=== PATIENT | female | born 1985 | race Caucasian/White ===

== ENCOUNTER 2016-05-31 09:17 | Inpatient (IN) | payer OTHER ==
[2016-05-31] VITALS (11 sets, daily range): BP systolic 104–138; BP diastolic 60–78; PULSE 63–95; RESP 16–18; TEMP 98.1; O2SAT 95–98
[~2016-05-31] VITALS: Ht 167.6 cm; Wt 89.8 kg
[2016-05-31] MEDS ORDERED: VALT500T PO (10:21)
[2016-05-31] MEDS ORDERED: ASPI-110 PO (10:21)
[2016-05-31] MEDS ORDERED: PNVPAK PO (10:21)
[2016-05-31 11:07] LABS: AUTOMATED NEUTROPHIL # 5.8 TH/MM3 (1.8-7.7); BASOPHIL % 0.2 % (0.0-2.0); EOSINOPHIL # 0.1 TH/MM3 (0-0.4); EOSINOPHIL % 0.6 % (0.0-4.0); HEMO FLAGS DIFF FINAL; LYMPH % 14.6 % (9.0-44.0); LYMPHOCYTE # 1.1 TH/MM3 (1.0-4.8); MEAN CELL VOLUME 91.2 FL (80.0-100.0); MEAN CORPUSCULAR HEMOGLOBIN 32.5 PG (27.0-34.0); MEAN CORPUSCULAR HGB CONC 35.6 % (32.0-36.0); MONO % 10.1 % (0.0-8.0); NEUT % 74.5 % (16.0-70.0); PLATELET COUNT 140 TH/MM3 (150-450); RED BLOOD COUNT 3.83 MIL/MM3 (4.00-5.30); RED CELL DISTRIBUTION WIDTH 13.1 % (11.6-17.2); WHITE BLOOD COUNT 7.8 TH/MM3 (4.0-11.0)
[2016-05-31 11:13] LABS: BACTERIA, URINE OCC /hpf; BLOOD, URINE NEG (NEG); COMMENT (UR) CULT NOT INDICATED; CULTURE IF INDICATED CULT NOT INDICATED; GLUCOSE,URINE NEG (NEG); KETONE, URINE NEG (NEG); MUCUS URINE FEW /lpf (OCC); NITRITE,URINE NEG (NEG); PH, URINE 6.5 (5.0-8.5); SQUAMOUS EPITHELIAL CELL URINE 1 /hpf (0-5); URINE COLOR LIGHT-YELLOW (YELLW/STRAW)
--- NOTE | 2016-05-31 12:50 | MH ---
cc: CHANDA CARLISLE M.D. DATE OF ADMISSION: 05/31/2016 ADMITTING DIAGNOSIS 1. at 36 weeks. 2. Oligohydramnios. 3. Large fibroids. 4. Positive BHUPENDRA. HISTORY OF PRESENT ILLNESS The patient is a 31-year-old white female, para 0, LMP of 09/18/2015, EDC of 06/24/2016, who has been followed by me throughout the with known large fibroids noted pre-conception. She has had appropriate growth. She has been having biophysical profiles to evaluate well-being. MATTHIAS 05/27/2016 was down to 6.7. Follow-up test today is down to 4.9. The maternal medicine JEFF, recommend proceeding with delivery. Due to her fibroids and unfavorable cervix, she is now admitted for primary . PAST MEDICAL HISTORY PREVIOUS SURGERY None. ALLERGIES 1. PENICILLIN. 2. CECLOR. 3. Z-ERIKA. TRANSFUSIONS None. SERIOUS MEDICAL ILLNESS 1. Positive BHUPENDRA. 2. Possible Sjogren's syndrome. SOCIAL HISTORY Mental health therapist. . Alcohol, tobacco and drugs are none. FAMILY HISTORY Noncontributory. PHYSICAL EXAMINATION GENERAL: A well-nourished, well-developed white female. VITAL SIGNS: Stable. HEENT: Exam is normal. CHEST: Clear. HEART: Regular rate. ABDOMEN: Gravid, nontender. EFW is 3000 grams. CERVIX: Cervix is long, thick and closed. ASSESSMENT As above. PLAN She is now admitted for primary . While in the office I explained the procedures, the risks, benefits and complications including but not limited to , infection, bleeding, immaturity as well as risk of stillborn described. MD CHIP Basilio/NEO /12:32 PM /12:38 PM ANGELLA
[2016-05-31] MEDS: LACTATED RINGER'S 1000 ML INJ 1,000 ML IV SCH ×2 (13:04→23:04)
[2016-05-31] MEDS ORDERED: CITRIC ACID-SODIUM CITRATE LIQ 30 ML UDC PO SCH (15:30)
[2016-05-31] MEDS ORDERED: LACTATED RINGER'S 1000 ML IV ONE (15:30)
[2016-05-31] MEDS ORDERED: CLINDAMYCIN INJ 900 MG in SODIUM CHLORIDE 0.9% INJ 100 ML IV SCH (15:30)
[2016-05-31] MEDS: LACTATED RINGER'S 1000 ML IV SCH ×2 (16:28→22:40)
[2016-05-31] MEDS ORDERED: EPIDURAL-NALOXONE HCL 0.4 MG/ML AMP IV PRN (17:05)
[2016-05-31] MEDS ORDERED: EPIDURAL-NO SYSTEMIC NARCOTICS XX PRN (17:05)
[2016-05-31] MEDS ORDERED: EPIDURAL-DIPHENHYDRAMINE HCL 50 MG/ML VIAL IV PUSH PRN (17:05)
[2016-05-31] MEDS ORDERED: EPIDURAL-DO NOT ADMINISTER ANTICOAGULANTS XX PRN (17:05)
[2016-05-31] MEDS ORDERED: EPIDURAL-DIPHENHYDRAMINE HCL 50 MG CAP PO PRN (17:05)
[2016-05-31] MEDS ORDERED: ACETAMINOPHEN 1000 MG/100 ML VIAL IV ONE (17:14)
[2016-05-31] MEDS ORDERED: DICLOFENAC SODIUM 37.5 MG/ML VIAL IV PUSH ONE (17:14)
[2016-05-31] MEDS ORDERED: MORPHINE SULFATE PF 5 MG/10 ML VIAL ONE (17:59)
[2016-05-31] MEDS ORDERED: OXYTOCIN 10 UNIT/ML AMP ONE ×3 (17:59→19:08)
[2016-05-31] MEDS ORDERED: OXYTOCIN 30 UNITS-500ML PREMIX 500 ML IV ONE (18:00)
[2016-05-31] MEDS ORDERED: ZOLPIDEM TARTRATE 5 MG TAB PO PRN (18:00)
[2016-05-31] MEDS: ACETAMINOPHEN 1000 MG/100 ML VIAL IV SCH (18:00)
[2016-05-31] MEDS ORDERED: SODIUM CHLORIDE 0.9% FLUSH 5 ML FLUSH IV PRN (18:00)
[2016-05-31] MEDS ORDERED: ONDANSETRON HCL 4 MG/2 ML VIAL IVP PRN (18:00)
[2016-05-31] MEDS ORDERED: oxyCODONE/ACETAMINOPHEN 5 MG/325 MG TAB PO PRN (18:00)
[2016-05-31] MEDS ORDERED: KETOROLAC TROMETHAMINE 30 MG/ML (IVP) VIAL IV PUSH SCH (18:00)
[2016-05-31] MEDS ORDERED: SIMETHICONE 80 MG CHEWABLE TAB PO PRN (18:00)
[2016-05-31] MEDS ORDERED: MEASLES, MUMPS, RUBELLA VACCINE 0.5 ML VIAL SQ ONE (18:00)
[2016-05-31] MEDS ORDERED: OXYTOCIN 30 UNITS-500ML PREMIX 500 ML IV PRN (18:15)
[2016-05-31] MEDS ORDERED: METHYLERGONOVINE MALEATE 0.2 MG/ML VIAL ONE (18:34)
[2016-05-31] MEDS ORDERED: METHYLERGONOVINE MALEATE 0.2 MG/ML VIAL IM ONE (20:30)
[2016-05-31] MEDS: SODIUM CHLORIDE 0.9% FLUSH 5 ML FLUSH IV SCH (21:00)
[2016-05-31] MEDS: OXYTOCIN INJ 20 UNITS in LACTATED RINGER'S 1000 ML INJ 1,000 ML IV SCH (23:28)
[2016-06-01] MEDS ORDERED: KETOROLAC TROMETHAMINE 30 MG/ML (IVP) VIAL IV PUSH PRN (01:30)
[2016-06-01] MEDS: ACETAMINOPHEN 1000 MG/100 ML VIAL IV SCH ×2 (02:08→09:47)
[2016-06-01] MEDS: LACTATED RINGER'S 1000 ML IV SCH (04:53)
[2016-06-01] MEDS: OXYTOCIN INJ 20 UNITS in LACTATED RINGER'S 1000 ML INJ 1,000 ML IV SCH ×2 (05:52→14:39)
[2016-06-01 06:23] LABS: AUTOMATED NEUTROPHIL # 10.1 TH/MM3 (1.8-7.7); BASOPHIL % 0.1 % (0.0-2.0); EOSINOPHIL % 0.1 % (0.0-4.0); HEMATOCRIT 28.9 % (35.0-46.0); HEMO FLAGS DIFF FINAL; LYMPH % 14.6 % (9.0-44.0); LYMPHOCYTE # 1.9 TH/MM3 (1.0-4.8); MEAN CELL VOLUME 91.8 FL (80.0-100.0); MEAN CORPUSCULAR HEMOGLOBIN 31.9 PG (27.0-34.0); MEAN CORPUSCULAR HGB CONC 34.7 % (32.0-36.0); MONO % 5.7 % (0.0-8.0); NEUT % 79.5 % (16.0-70.0); PLATELET COUNT 148 TH/MM3 (150-450); RED BLOOD COUNT 3.15 MIL/MM3 (4.00-5.30); RED CELL DISTRIBUTION WIDTH 12.8 % (11.6-17.2); WHITE BLOOD COUNT 12.7 TH/MM3 (4.0-11.0)
[2016-06-01 06:38] LABS: BICARBONATE 26.9 MEQ/L (21.0-32.0); POTASSIUM 4.2 MEQ/L (3.5-5.1)
[2016-06-01 16:15] VITALS: BP 116/71; PULSE 84; RESP 18; TEMP 98.1
[2016-06-01] MEDS: ENOXAPARIN SODIUM 40 MG/0.4 ML SYRINGE SQ SCH (17:53)
[2016-06-01] MEDS: IBUPROFEN 600 MG TAB PO PRN (19:51)
[2016-06-01] MEDS: oxyCODONE/ACETAMINOPHEN 5 MG/325 MG TAB PO PRN (19:51)
[2016-06-01 20:00] VITALS: BP 110/65; PULSE 70; RESP 18; TEMP 98
[2016-06-02] MEDS: oxyCODONE/ACETAMINOPHEN 5 MG/325 MG TAB PO PRN ×3 (06:08→19:19)
[2016-06-02] MEDS: IBUPROFEN 600 MG TAB PO PRN ×3 (06:08→19:19)
[2016-06-02] MEDS: SODIUM CHLORIDE 0.9% FLUSH 5 ML FLUSH IV SCH ×2 (07:21→20:09)
[2016-06-02] MEDS: LACTATED RINGER'S 1000 ML IV SCH ×3 (07:21→20:10)
[2016-06-02] MEDS ORDERED: DIPHTH/TETANUS/ACEL PERTUSSIS (BOOSTER) 0.5 ML VIAL/PFS IM ONE (09:00)
[2016-06-02 10:40] VITALS: BP 118/72; PULSE 89; RESP 16; TEMP 98.6
[2016-06-02] MEDS: DOCUSATE SODIUM 50 MG/SENNA 8.6 MG TAB PO PRN (12:39)
--- NOTE | 2016-06-02 13:24 | MP ---
cc: CHANDA CARLISLE DATE OF SURGERY 05/31/2016 PREOPERATIVE DIAGNOSES 1. at 36 weeks. 2. Large fibroids. 3. 0ligohydramnios. 4. Factor II deficiency. Positive BHUPENDRA. POSTOPERATIVE DIAGNOSES 1. at 36 weeks. 2. Large fibroids. 3. 0ligohydramnios. 4. Factor II deficiency. Positive BHUPENDRA. 5. Delivered. PROCEDURE Primary low transverse section. ANESTHESIA Spinal. SURGEON Chanda Carlisle MD PAPERBOARD MACHINE OPERATOR GAYLA Devries ESTIMATED BLOOD LOSS FOR THE PROCEDURE About 500 cc. FLUIDS 1 liter crystalloid. OBJECTIVE FINDINGS Following the induction of adequate spinal anesthesia, the patient was prepped and draped supine on the operating table in the usual sterile fashion in left lateral tilt position. The abdomen was opened through a Pfannenstiel incision using a knife to cut down through the skin to the fascia. The fascia was opened transversely, stripped from the muscle, the rectus muscle split in the midline and the peritoneum opened sharply without incident. The bladder flap was taken down sharply, retracted with Va blade. The lower uterine segment was incised transversely with a knife, extended with blunt dissection, he membranes ruptured with clear fluid. The baby was in the LOT position. The vacuum was applied at low pressure for less than 5 seconds to facilitate removal of the head. The mouth was suctioned, the cord clamped and cut and the baby passed to the awaiting team, a viable, vigorous male. Apgars were 8 and 9, weight 5 pounds, 12 ounces. Cord blood was collected for typing. The placenta was manually removed and the uterine cavity wiped clean with laps. The uterus was exteriorized. There was a large 10-cm anterior fundal fibroid and several smaller posterior fibroids about 2 cm. Tubes and ovaries were normal. The uterine wound was then closed in two layers of running suture, the first with a running locking stitch of 0 Vicryl and the second with a running imbricating stitch of 0 Vicryl. Posterior inspection of the uterus, tubes and ovaries was normal. The uterus was now replaced in the abdominal cavity, irrigation performed. No bleeding was evident, so the bladder flap was closed with a running stitch of 3-0 Vicryl. All laps and retractors were removed, counts were correct. The anterior peritoneum was closed with a running 2-0 Vicryl, the fascia closed with a running locking stitch of 0 Vicryl from corner to midline and tied, the subcu with a running 3-0 Vicryl and the skin with a running subcuticular 3-0 Monocryl. Dermabond applied. All counts were correct and the patient was awakened and taken to the recovery room in good condition. MD CHIP Basilio/IVAN /5:59 PM /1:16 PM
[2016-06-02] MEDS: ENOXAPARIN SODIUM 40 MG/0.4 ML SYRINGE SQ SCH (18:26)
[2016-06-02 19:25] VITALS: BP 114/62; PULSE 76; RESP 16; TEMP 97.7
[2016-06-03] MEDS: oxyCODONE/ACETAMINOPHEN 5 MG/325 MG TAB PO PRN ×3 (01:21→12:56)
[2016-06-03] MEDS: IBUPROFEN 600 MG TAB PO PRN ×3 (01:22→12:55)
[2016-06-03] MEDS: LACTATED RINGER'S 1000 ML IV SCH ×2 (04:00→09:37)
[2016-06-03] MEDS: DOCUSATE SODIUM 50 MG/SENNA 8.6 MG TAB PO PRN (07:47)
[2016-06-03] MEDS ORDERED: OXYC1TAB63 PO (08:35)
[2016-06-03] MEDS ORDERED: ENOX40P SQ (08:35)
--- NOTE | 2016-06-03 08:35 | HHI.DCPOC ---
Discharge Care Plan Report Symptoms to Your Doctor -Temperate above 100.5 degrees -Redness, of incision or excessive or foul smelling drainage -Unusual pain or calf pain -Increased vaginal bleeding -Painful or difficulty urinating -Feelings of extreme sadness or anxiety after 2 weeks Goals to Promote Your Health * To prevent worsening of your condition and complications * To maintain your health at the optimal level Directions to Meet Your Goals Take your medications as prescribed Follow your dietary instruction Follow activity as directed Ensure plenty of rest for recovery Drink fluids for hydration Keep your appointments as scheduled Take your immunizations and boosters as scheduled If your symptoms worsen call your PCP, if no PCP go to Urgent Care Center or Emergency Room Smoking is Dangerous to Your Health. Avoid second hand smoke Call the 24-hour crisis hotline for domestic abuse at Mikey Krueger MD Jun 03, 2016 08:35
[2016-06-03] MEDS: SODIUM CHLORIDE 0.9% FLUSH 5 ML FLUSH IV SCH (09:00)
--- NOTE | 2016-06-06 20:37 | MD ---
cc: CHANDA CARLISLE ADMISSION DATE: 05/31/2016 DISCHARGE DATE: 06/03/2016 ADMISSION DIAGNOSES 1. at 36 weeks. 2. Multiple fibroids. 3. Oligohydraminos. 4. Sj gren syndrome. 5. Positive BHUPENDRA. 6. Factor II mutation. DISCHARGE DIAGNOSES 1. at 36 weeks. 2. Multiple fibroids. 3. Oligohydramnios. 4. Sj gren syndrome. 5. Positive BHUPENDRA. 6. Factor II mutation. 7. Delivered. PROCEDURE Primary low transverse section on 05/31/2016. HISTORY OF PRESENT ILLNESS The patient is a 31-year-old white female para 0, LMP of 09/18/2015, EDC of 06/24/2016 by dates, 06/28/2016 by early ultrasound. She was found have a large fibroid preconception. Myomectomy had been planned but she conceived spontaneously prior to surgery. Also known to have a positive BHUPENDRA and possible Sj gren syndrome. Previous pre- anticardiolipin antibodies. She was maintained on baby aspirin throughout the . Progesterone support first trimester. Had consultation at [facility] and was carefully followed. On the day of admission her MATTHIAS was 4.9. Her cervix was long and thick and she was admitted for section, had spinal anesthesia. A viable vigorous male, Apgars 8 and 9, weight 5 pounds 12 ounces. The baby was named Felipe. mom did well with gradual advancement of diet and activity. Discharged home in excellent condition on 06/03/2016. Pre and postop labs were normal. DISCHARGE INSTRUCTIONS She was discharged home on Lovenox 40 mg subcu daily, #30 with plan to continue for 6-8 weeks . And Percocet 5 one to two p.o. q.4h as needed for pain, #60. She will take her vitamins and iron pills and Valtrex at home. She will return to see me in one week. She will call if abnormal symptoms. She has requested circumcision when the baby is cleared for discharge. MD CHIP Basilio/KK /8:45 AM /8:26 PM [facility]PITAL[facility]
== END 2016-06-03 13:00 | disposition home or self-care (01) | DRG 765 ==
LOC: H2EB 09:17 → H1EA 20:01
PROVIDERS: ADMIT Obstetrics & Gynecology; ATTEND Obstetrics & Gynecology
PROC: 10D00Z1 Extraction of Products of Conception, Low, Open Approach (ICD-10-PCS; principal; 2016-05-31)
DX: O41.03X0 Oligohydramnios, third trimester, not applicable or unspecified (principal); O99.12 Other diseases of the blood and blood-forming organs and certain disorders involving the immune mechanism complicating childbirth; D68.2 Hereditary deficiency of other clotting factors; D25.9 Leiomyoma of uterus, unspecified; Z3A.36 36 weeks gestation of pregnancy; O34.13 Maternal care for benign tumor of corpus uteri, third trimester; Z37.0 Single live birth
CPT/HCPCS: 59025; 80048; 81001; 85025; 86850; 86900; 86901; J0131; J1130; J1650; J2210; J2274; J2590; J7120

== ENCOUNTER 2017-04-10 21:18 | Emergency (ER) | payer OTHER ==
[~2017-04-10] VITALS: Ht 167.6 cm; Wt 70.0 kg
[~2017-04-10 21:18] MED LIST: ENOX40P SQ; OXYC1TAB63 PO; PNVPAK PO; VALT500T PO
[2017-04-10 21:20] VITALS: BP 126/77; PULSE 139; RESP 18; TEMP 98.8; O2SAT 99
--- NOTE | 2017-04-10 22:15 | PD ---
HPI Chief Complaint: Medical Clearance Time Seen by Provider: 21:43 Travel History International Travel<30 days: No Contact w/Intl Traveler<30days: No Traveled to known affect area: No History of Present Illness HPI 32-year-old female presents to the emergency department for evaluation after having development of numbness in her hands, then her lips, onset of headache, one episode of vomiting, and her heart racing tonight at approximately 8 PM. She has history of migraine headaches with auras in the past with numbness and tingling. Headache is left-sided. She denies numbness and tingling in her hands or lips at this time. She denies airway edema. Her heart rate is a proximally 120 230 bpm. She reports having an episode where she was trying to express she was trying to say and was unable to say it. Denies confusion, disorientation, change in mentation, slurred speech. Denies focal deficits or weakness. Has had intermittent episodes of her heart racing and shortness of breath for the past month. Reports feeling a little shortness of breath at this time. Denies chest pressure or pain. Denies fevers or recent illness. Denies abdominal pain. Took ibuprofen prior to arrival and then had the episode of vomiting. Rates headache 610. Describes it as an throbbing sensation. Headache is left-sided. She was at a [employer] tonight for [employer] and denies eating any new foods. Reports breast-feeding currently. Her primary care provider is nurse practitioner Alexandra. Allergies to penicillin, Ceclor, azithromycin. History of factor II bleeding disorder and Sjorgens. Denies anticoagulant therapy. Has no other medical complaints. No other modifying factors or associated signs and symptoms. PFSH Past Medical History Autoimmune Disease: Yes (UNKNOWN DISEASE) Blood Disorders: Yes (FACTOR 2 DEFICIENCY) Diminished Hearing: No Immunizations Current: Yes ?: Unknown Past Surgical History Section: Yes Social History Alcohol Use: Yes (OCC) Tobacco Use: No Substance Use: No Allergies-Medications (Allergen,Severity, Reaction): Coded Allergies: cefaclor (Unverified Allergy, Severe, Hives, 04/10/17) penicillin G (Unverified Allergy, Severe, Hives, 04/10/17) azithromycin (Unverified Allergy, Intermediate, Hives, 04/10/17) Reported Meds & Prescriptions Reported Meds & Active Scripts Active Review of Systems Except as stated in HPI: all other systems reviewed are Neg Physical Exam Narrative GENERAL: Well-nourished, well-developed patient, in no acute distress SKIN: Warm and dry. HEAD: Atraumatic. Normocephalic. Tongue midline. No facial droop noted. Finger to nose test normal. EYES: Pupils equal and round at 4 mm with brisk reaction. No scleral icterus. No injection or drainage. PERRLA. EOMI. ENT: Mucosa pink and moist. Airway patent. NECK: Trachea midline. No lymphadenopathy. CARDIOVASCULAR: Tachycardic rate and rhythm 120s. No murmur appreciated. RESPIRATORY: No accessory muscle use. Clear to auscultation. Breath sounds equal bilaterally. GASTROINTESTINAL: Abdomen soft, non-tender, nondistended. Hepatic and splenic margins not palpable. Bowel sounds are active 4 quadrants. MUSCULOSKELETAL: No obvious deformities. No clubbing. No cyanosis. No edema. NEUROLOGICAL: Awake and alert. Oriented 3. No obvious cranial nerve deficits. Motor grossly within normal limits. Normal speech. No ataxia. No mid -line drift. No upper or lower extremity drift. Moves all extremities. 5/5 strength to all extremities. PSYCHIATRIC: Appropriate mood and affect; insight and judgment normal. Data Data Last Documented VS Vital Signs Date Time Temp Pulse Resp B/P (MAP) Pulse Ox O2 Delivery O2 Flow Rate FiO2 04/10/17 21:20 98.8 139 18 126/77 (93) 99 Room Air Orders Orders Basic Metabolic Panel (Bmp) (04/10/17 22:16) Complete Blood Count With Diff (04/10/17 22:16) Iv Access Insert/Monitor (04/10/17 22:16) Ecg Monitoring (04/10/17 22:16) Oximetry (04/10/17 22:16) Sodium Chlor 0.9% 1000 Ml Inj (Ns 1000 M (04/10/17 22:16) Sodium Chloride 0.9% Flush (Ns Flush) (04/10/17 22:30) Electrocardiogram (04/10/17 22:16) Thyroid Stimulating Hormone (04/10/17 22:16) Ct Brain W/O Iv Contrast(Rout) (04/10/17 ) [facility] Medical Decision Making Medical Screen Exam Complete: Yes Emergency Medical Condition: Yes Medical Record Reviewed: Yes Differential Diagnosis Sinus tachycardia, anxiety, panic attack, dehydration, migraine with aura Narrative Course 32-year-old female with episode of numbness and tingling in her hands and lips, onset of headache, and one episode of vomiting. Has history of migraine headaches with auras. Heart rate is in the 120s; denies chest pain, chest pressure. Has intermittent episodes of heart racing and shortness of breath for the past month. Physical exam and neuro exam is unremarkable. I discussed patient with Dr. Guido and she will evaluate the patient. 2207: Dr. Guido evaluated the patient and recommended EKG, CBC, BMP, TSH, CT head, normal saline bolus. 0: Dr. Guido assumed patient care at this time. See her note for final patient disposition. Teresa Hernandez Apr 10, 2017 22:15
[2017-04-10] MEDS ORDERED: SODIUM CHLOR 0.9% 1000 ML INJ 1,000 ML IV SCH ×2 (22:16→23:45)
[2017-04-10] MEDS ORDERED: SODIUM CHLORIDE 0.9% FLUSH 10 ML FLUSH IV FLUSH PRN (22:30)
--- NOTE | 2017-04-10 23:17 | RADRPT ---
EXAM DATE/TIME: 04/10/2017 22:50 [place] COMPARISON: No previous studies available for comparison. INDICATIONS : Cephalgia. RADIATION DOSE: 56.35 CTDIvol (mGy) MEDICAL HISTORY : None SURGICAL HISTORY : None. ENCOUNTER: Initial ACUITY: 1 day PAIN SCALE: 5/10 LOCATION: cranial TECHNIQUE: Multiple contiguous axial images were obtained of the head. Using automated exposure control and adjustment of the mA and/or kV according to patient size, radiation dose was kept as low as reasonably achievable to obtain optimal diagnostic quality images. DICOM format image data is av ailable electronically for review and comparison. FINDINGS: There is no evidence for intracranial hemorrhage, mass effect, mass lesions, edema, or extra-axial fl uid collections. The visualized bony structures appear intact. The ventricles are normal size for t he patient's age. There are no signs of acute infarction for technique. CONCLUSION: Unremarkable study. Farida Castro MD on April 10, 2017 at 23:13 Board Certified Radiologist. This report was verified electronically.
[2017-04-10 23:28] LABS: AUTOMATED NEUTROPHIL # 3.9 TH/MM3 (1.8-7.7); BASOPHIL % 0.1 % (0.0-2.0); EOSINOPHIL % 0.3 % (0.0-4.0); HEMATOCRIT 33.8 % (35.0-46.0); HEMOGLOBIN 11.4 GM/DL (11.6-15.3); LYMPH % 16.5 % (9.0-44.0); LYMPHOCYTE # 0.9 TH/MM3 (1.0-4.8); MEAN CELL VOLUME 86.5 FL (80.0-100.0); MEAN CORPUSCULAR HEMOGLOBIN 29.1 PG (27.0-34.0); MEAN CORPUSCULAR HGB CONC 33.6 % (32.0-36.0); MEAN PLATELET VOLUME 8.4 FL (7.0-11.0); MONO % 9.8 % (0.0-8.0); MONOCYTE # 0.5 TH/MM3 (0-0.9); NEUT % 73.3 % (16.0-70.0); PLATELET COUNT 209 TH/MM3 (150-450); RED BLOOD COUNT 3.91 MIL/MM3 (4.00-5.30); RED CELL DISTRIBUTION WIDTH 12.8 % (11.6-17.2); WHITE BLOOD COUNT 5.4 TH/MM3 (4.0-11.0)
[2017-04-10 23:36] LABS: BICARBONATE 25.6 MEQ/L (21.0-32.0); BLOOD UREA NITROGEN 17 MG/DL (7-18); CALCIUM 8.6 MG/DL (8.5-10.1); CHLORIDE 107 MEQ/L (98-107); CREATININE 0.65 MG/DL (0.50-1.00); GLOMERULAR FILTRATION RATE 106 ML/MIN (>89); GLUCOSE,RANDOM 98 MG/DL (74-106); SODIUM (NA) 140 MEQ/L (136-145)
--- NOTE | 2017-04-11 00:08 | PD ---
Data Data Last Documented VS Vital Signs Date Time Temp Pulse Resp B/P (MAP) Pulse Ox O2 Delivery O2 Flow Rate FiO2 04/10/17 23:00 Room Air 04/10/17 21:20 98.8 139 18 99 Orders Orders Basic Metabolic Panel (Bmp) (04/10/17 22:16) Complete Blood Count With Diff (04/10/17 22:16) Iv Access Insert/Monitor (04/10/17 22:16) Ecg Monitoring (04/10/17 22:16) Oximetry (04/10/17 22:16) Sodium Chlor 0.9% 1000 Ml Inj (Ns 1000 M (04/10/17 22:16) Sodium Chloride 0.9% Flush (Ns Flush) (04/10/17 22:30) Electrocardiogram (04/10/17 22:16) Thyroid Stimulating Hormone (04/10/17 22:16) Ct Brain W/O Iv Contrast(Rout) (04/10/17 ) Sodium Chlor 0.9% 1000 Ml Inj (Ns 1000 M (04/10/17 23:45) Labs Laboratory Tests Test 04/10/17 22:47 White Blood Count 5.4 TH/MM3 Red Blood Count 3.91 MIL/MM3 Hemoglobin 11.4 GM/DL Hematocrit 33.8 % Mean Corpuscular Volume 86.5 FL Mean Corpuscular Hemoglobin 29.1 PG Mean Corpuscular Hemoglobin Concent 33.6 % Red Cell Distribution Width 12.8 % Platelet Count 209 TH/MM3 Mean Platelet Volume 8.4 FL Neutrophils (%) (Auto) 73.3 % Lymphocytes (%) (Auto) 16.5 % Monocytes (%) (Auto) 9.8 % Eosinophils (%) (Auto) 0.3 % Basophils (%) (Auto) 0.1 % Neutrophils # (Auto) 3.9 TH/MM3 Lymphocytes # (Auto) 0.9 TH/MM3 Monocytes # (Auto) 0.5 TH/MM3 Eosinophils # (Auto) 0.0 TH/MM3 Basophils # (Auto) 0.0 TH/MM3 CBC Comment DIFF FINAL Differential Comment Blood Urea Nitrogen 17 MG/DL Creatinine 0.65 MG/DL Random Glucose 98 MG/DL Calcium Level 8.6 MG/DL Sodium Level 140 MEQ/L Potassium Level 4.0 MEQ/L Chloride Level 107 MEQ/L Carbon Dioxide Level 25.6 MEQ/L Anion Gap 7 MEQ/L Estimat Glomerular Filtration Rate 106 ML/MIN Thyroid Stimulating Hormone 3rd Gen LESS THAN 0.005 uIU/ML MDM Supervised Visit with NEFTALY: Yes Interpretation(s) No leukocytosis I'll do anemia mild anemia electrolytes are reassuring tsh is low Differential Diagnosis Migraine headache, intracranial hemorrhage, stroke, TIA, hyperthyroidism Narrative Course This is a 32-year-old female who presents to the emergency department with multiple symptoms including shortness of breath, palpitations, numbness and tingling, some speech difficulty and some visual changes. She was persistently tachycardic in the emergency department. Her heart rate came down some with IV fluids but not completely. Her TSH is less than 0.005 consistent with likely hyperthyroidism which I suspect is contributing to her symptoms. She was advised to follow-up with her primary care physician. She is currently nursing so I don't want to start her on atenolol. I think she is safe for outpatient follow-up but I did explain to her the urgency of following up as soon as possible with her primary care physician. Patient will be discharged home. Diagnosis Primary Impression: Low TSH level Patient Instructions: General Instructions Additional Instruction: If you develop severe chest pain, shortness of breath, sweating, lightheadedness , dizziness or difficulty breathing return to the emergency department immediately. Followup with your primary care physician as soon as possible regarding your thyroid. Med/Other Pt SpecificInfo: No Change to Meds Disposition: 01 DISCHARGE HOME Condition: Stable Krupa Guido MD Apr 11, 2017 00:08
--- NOTE | 2017-04-11 08:51 | EKG ---
Date Performed: 04/10/2017 Time Performed: 22:33:58 PTAGE: 32 years EKG: SINUS TACHYCARDIA ABNORMAL RHYTHM ECG NO PREVIOUS TRACING DOCTOR: Navjot Lieberman Interpretating Date/Time 04/11/2017 08:51:20
== END 2017-04-11 01:21 | disposition home or self-care (01) ==
LOC: NEPC 21:18
DX: R94.6 Abnormal results of thyroid function studies (principal); R06.02 Shortness of breath; R20.0 Anesthesia of skin; R51 Headache
CPT/HCPCS: 70450; 80048; 84443; 85025; 93005; 96360; 96361; 99285; J7030

== ENCOUNTER 2017-09-26 19:32 | Observation (INO) | payer OTHER ==
[~2017-09-26] VITALS: Ht 167.6 cm; Wt 85.0 kg
[2017-09-26 19:37] VITALS: BP 161/81; PULSE 113; RESP 18; TEMP 98.4; O2SAT 99
[2017-09-26] MEDS ORDERED: LEVO.1 PO (19:50)
[2017-09-26] MEDS ORDERED: SODIUM CHLOR 0.9% 1000 ML INJ 1,000 ML IV ONE (20:00)
[2017-09-26 20:09] VITALS: PULSE 98; RESP 18; O2SAT 99
[2017-09-26 20:10] VITALS: BP 142/88; PULSE 102; RESP 18; O2SAT 99
[2017-09-26 20:26] LABS: AUTOMATED NEUTROPHIL # 2.3 TH/MM3 (1.8-7.7); BASOPHIL % 0.4 % (0.0-2.0); EOSINOPHIL # 0.1 TH/MM3 (0-0.4); EOSINOPHIL % 1.5 % (0.0-4.0); HEMATOCRIT 39.7 % (35.0-46.0); HEMOGLOBIN 13.4 GM/DL (11.6-15.3); LYMPH % 35.1 % (9.0-44.0); LYMPHOCYTE # 1.5 TH/MM3 (1.0-4.8); MEAN CELL VOLUME 86.1 FL (80.0-100.0); MEAN CORPUSCULAR HGB CONC 33.7 % (32.0-36.0); MONO % 9.5 % (0.0-8.0); MONOCYTE # 0.4 TH/MM3 (0-0.9); NEUT % 53.5 % (16.0-70.0); PLATELET COUNT 212 TH/MM3 (150-450); RED BLOOD COUNT 4.61 MIL/MM3 (4.00-5.30); RED CELL DISTRIBUTION WIDTH 16.4 % (11.6-17.2); WHITE BLOOD COUNT 4.3 TH/MM3 (4.0-11.0)
[2017-09-26 20:36] LABS: PROTHROMBIN TIME - PATIENT 9.8 SEC (9.8-11.6)
--- NOTE | 2017-09-26 20:36 | PD ---
HPI Chief Complaint: Neuro Symptoms/ Deficits Time Seen by Provider: 19:46 Travel History International Travel<30 days: No Contact w/Intl Traveler<30days: No Traveled to known affect area: No History of Present Illness HPI The patient is a 32 year old female who presents to the [facility] emergency department with a history of earlier this evening having onset of loss of visual sarmiento in the right side of her vision along the periphery, associated with difficulty with word finding ability, numbness and tingling to the right side of her face and right arm the patient reports that she has had similar symptoms in the past related to being hyperthyroid. She is under the care of an amalgamator, . She reports that she underwent thyroid ablation in June 2017 and is now hypothyroid. She reports that her levothyroxine was recently. She reports that she normally gets her blood levels drawn every 2 weeks. The patient reports that over the last 2 weeks she has been tachycardic, hypertensive over the last 2 months, and also over the last year having intermittent shortness of breath. She reports that she had attributed these symptoms to anxiety and hyperthyroid disorder. The patient additionally reports that she has had problems with constipation. She last moved her bowels normally approximately 1 week ago with the use of MiraLAX. 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 The patient denies being on any blood thinners or aspirin. She reports that she was on an aspirin daily when she was and this was discontinued in May 2016 when she delivered her baby. The patient's other medical history is complicated by having an autoimmune disorder diagnosed based on abnormal laboratory studies, however she reports that she is asymptomatic. She is followed by adding machine mechanic every 6 months for this. She reports that her last BHUPENDRA had actually returned to normal. On review of systems otherwise, the patient denies having any known recent fevers, cough or conge, neck pain, chest pain, abdominal pain, vomiting, diarrhea, urinary symptoms, one-sided weakness, or dizziness. The patient reports that the neurologic symptoms that she was experiencing lasted for a few minutes and then resolved. She denies ever having an MRI of the brain. The patient incidentally reports also having an associated headache behind the left eye with light sensitivity. LMP: September 11 - September 16, reportedly using condoms for prevention of [facility] Past Medical History Narrative Medical The patient's past medical history is significant for an autoimmune disorder, coagulation disorder with factor II deficiency, history of hyperthyroidism status post ablation and now hypothyroidism. Autoimmune Disease: Yes (UNKNOWN DISEASE) Blood Disorders: Yes (FACTOR 2 DEFICIENCY) Diminished Hearing: No Immunizations Current: Yes Thyroid Disease: Yes (hypothroidism) Tetanus Vaccination: < 5 Years Influenza Vaccination: Yes ?: Unknown LMP: 09/11/2017 Past Surgical History Narrative Surgical The patient's past surgical history is significant for . Section: Yes Other Surgery: Yes (iodine radation of tyriod) Social History Alcohol Use: Yes (OCC) Tobacco Use: No Substance Use: No Allergies-Medications (Allergen,Severity, Reaction): Coded Allergies: cefaclor (Unverified Allergy, Severe, Hives, 09/26/17) penicillin G (Unverified Allergy, Severe, Hives, 09/26/17) azithromycin (Unverified Allergy, Intermediate, Hives, 09/26/17) Reported Meds & Prescriptions Reported Meds & Active Scripts Active Reported Synthroid (Levothyroxine Sodium) 100 Mcg Tab 100 Mcg PO DAILY Review of Systems Except as stated in HPI: all other systems reviewed are Neg General / Constitutional: No: Fever Eyes: No: Visual changes HENT: Positive: Headaches, No: Rhinorrhea, Congestion, Neck Stiffness, Neck Pain Cardiovascular: Positive: Dyspnea on exertion, No: Chest Pain or Discomfort Respiratory: Positive: Shortness of Breath, No: Cough Gastrointestinal: Positive: Constipation, Changes in Bowel Habits, No: Nausea, Vomiting, Diarrhea, Abdominal Pain, Indigestion, Loss of Appetite Genitourinary: No: Dysuria Musculoskeletal: No: Pain Skin: No Rash Neurologic: Positive: Focal Abnormalities, Sensory Disturbance, Other (The patient reports difficulty with word finding ability), No: Weakness, Change in Mentation, Slurred Speech Psychiatric: No: Depression Endocrine: No: Polydipsia Hematologic/Lymphatic: No: Easy Bruising Physical Exam Narrative General: The patient is a well-developed well-nourished female in no acute distress, reportedly asymptomatic at this time. Head and Neck exam: Head is normocephalic atraumatic. Eyes: EOMI, pupils are equal round and reactive to light. Nose: Midline septum with pink mucous membranes Mouth: Dentition unremarkable. Moist mucus membranes. Posterior oropharynx is not erythematous. No tonsillar hypertrophy. Uvula midline. Airway patent. Neck: No palpable lymphadenopathy. No nuchal rigidity. No thyromegaly. Cardiovascular: Sinus tachycardia in the low 100s without murmurs, gallops, or rubs. No pulse deficit to the extremities on simultaneous auscultation and palpation of her radial artery. Lungs: Clear to auscultation bilaterally. No wheezes, rhonchi, or rales. Abdomen: Soft, without tenderness to palpation in all 4 quadrants of the abdomen. No guarding, rebound, or rigidity. Normal bowel sounds are audible. No tenderness on palpation of McBurney's point. Extremities: No clubbing, cyanosis, or edema. 2+ pulses in all 4 extremities. No calf tenderness on palpation. Back: No spinous process tenderness to palpation. No costovertebral angle tenderness to palpation. Neurologic Exam: Cranial nerves 2-12 were intact on exam. Strength is 5/5 in all 4 extremities. No sensory deficits noted. Skin Exam: No rash noted. Intact skin that is warm and dry. Data Data Last Documented VS Vital Signs Date Time Temp Pulse Resp B/P (MAP) Pulse Ox O2 Delivery O2 Flow Rate FiO2 09/26/17 21:44 90 18 125/61 (82) 100 Room Air 09/26/17 19:37 98.4 Orders Orders Electrocardiogram (09/26/17 19:51) Complete Blood Count With Diff (09/26/17 19:51) Comprehensive Metabolic Panel (09/26/17 19:51) Creatine Kinase (Cpk) (09/26/17 19:51) Ckmb (Isoenzyme) Profile (09/26/17:51) Troponin I (09/26/17 19:51) Prothrombin Time / Inr (Pt) (09/26/17 19:51) Act Partial Throm Time (Ptt) (09/26/17 19:51) Lipase (09/26/17 19:51) Urinalysis - C+S If Indicated (09/26/17 19:51) Magnesium (Mg) (09/26/17 19:51) Chest, Single Ap (09/26/17 19:51) Ct Brain W/O Iv Contrast(Rout) (09/26/17 19:51) Iv Access Insert/Monitor (09/26/17 19:51) Ecg Monitoring (09/26/17 19:51) Oximetry (09/26/17 19:51) Ed Urine Pregnancytest Poc (09/26/17 19:51) Drug Screen, Random Urine (09/26/17 19:51) Alcohol (Ethanol) (09/26/17 19:51) Salicylates (Aspirin) (09/26/17 19:51) Tylenol (Acetaminophen) (09/26/17 19:51) Thyroid Stimulating Hormone (09/26/17 19:51) Sodium Chlor 0.9% 1000 Ml Inj (Ns 1000 M (09/26/17 20:00) Sodium Chlor 0.9% 1000 Ml Inj (Ns 1000 M (09/26/17 21:00) [place] (09/26/17 20:34) CKMB (09/26/17 20:02) CKMB% (09/26/17 20:02) Aspirin (Aspirin) (09/26/17 22:00) Acetaminophen (Tylenol) (09/26/17 22:00) Admit Order (Ed Use Only) (09/26/17 22:04) Labs Laboratory Tests Test 09/26/17 20:02 09/26/17 20:28 White Blood Count 4.3 TH/MM3 Red Blood Count 4.61 MIL/MM3 Hemoglobin 13.4 GM/DL Hematocrit 39.7 % Mean Corpuscular Volume 86.1 FL Mean Corpuscular Hemoglobin 29.0 PG Mean Corpuscular Hemoglobin Concent 33.7 % Red Cell Distribution Width 16.4 % Platelet Count 212 TH/MM3 Mean Platelet Volume 8.0 FL Neutrophils (%) (Auto) 53.5 % Lymphocytes (%) (Auto) 35.1 % Monocytes (%) (Auto) 9.5 % Eosinophils (%) (Auto) 1.5 % Basophils (%) (Auto) 0.4 % Neutrophils # (Auto) 2.3 TH/MM3 Lymphocytes # (Auto) 1.5 TH/MM3 Monocytes # (Auto) 0.4 TH/MM3 Eosinophils # (Auto) 0.1 TH/MM3 Basophils # (Auto) 0.0 TH/MM3 CBC Comment DIFF FINAL Differential Comment Prothrombin Time 9.8 SEC Prothromb Time International Ratio 1.0 RATIO Activated Partial Thromboplast Time 26.8 SEC Blood Urea Nitrogen 17 MG/DL Creatinine 0.99 MG/DL Random Glucose 88 MG/DL Total Protein 8.5 GM/DL Albumin 4.3 GM/DL Calcium Level 9.4 MG/DL Magnesium Level 2.1 MG/DL Alkaline Phosphatase 91 U/L Aspartate Amino Transf (AST/SGOT) 33 U/L Alanine Aminotransferase (ALT/SGPT) 30 U/L Total Bilirubin 0.4 MG/DL Sodium Level 138 MEQ/L Potassium Level 4.7 MEQ/L Chloride Level 103 MEQ/L Carbon Dioxide Level 24.7 MEQ/L Anion Gap 10 MEQ/L Estimat Glomerular Filtration Rate 65 ML/MIN Total Creatine Kinase 501 U/L Creatine Kinase MB 4.5 NG/ML Creatine Kinase MB % 0.9 % Troponin I LESS THAN 0.02 NG/ML Lipase 85 U/L Thyroid Stimulating Hormone 3rd Gen 54.400 uIU/ML Salicylates Level LESS THAN 1.7 MG/DL Acetaminophen Level LESS THAN 2.0 MCG/ML Ethyl Alcohol Level LESS THAN 3 MG/DL Urine Color COLORLESS Urine Turbidity CLEAR Urine pH 6.0 Urine Specific [place] 1.004 Urine Protein NEG mg/dL Urine Glucose (UA) NEG mg/dL Urine Ketones NEG mg/dL Urine Occult Blood NEG Urine Nitrite NEG Urine Bilirubin NEG Urine Urobilinogen LESS THAN 2.0 MG/DL Urine Leukocyte Esterase NEG Urine WBC LESS THAN 1 /hpf Urine Squamous Epithelial Cells <1 /hpf Urine Mucus FEW /lpf Microscopic Urinalysis Comment CULT NOT INDICATED Urine Opiates Screen NEG Urine Barbiturates Screen NEG Urine Amphetamines Screen NEG Urine Benzodiazepines Screen NEG Urine Cocaine Screen NEG Urine Cannabinoids Screen NEG MDM Medical Decision Making Medical Screen Exam Complete: Yes Emergency Medical Condition: Yes Medical Record Reviewed: Yes Differential Diagnosis TIA, versus CVA, versus multiple sclerosis, versus endocrine disorder, versus somatization, versus anxiety disorder, versus migraine headache Narrative Course During the course of the patient's emergency department visit, the patient's history, examination, and differential diagnosis were reviewed with the patient. The patient was placed on a security monitor with oximetry and frequent blood pressure monitoring. The patient had IV access obtained and blood work sent for analysis. CT scan of the brain was ordered. The patient was initially provided normal saline at 70 mL/h. The patient's head of the bed was placed flat. The patient's laboratory studies were reviewed and remarkable for for a white count of 4.3, hemoglobin 13.4, platelets 212 with 9.5 monocytes, CMP is remarkable for GFR of 65, CPK 501 within normal MB percent, troponin I less than 0.02, lipase 85, TSH is 54.4 consistent with being hypothyroid, PT 9.8, PTT 26.8, urinalysis is within normal limits, urine drug screen is negative, salicylate less than 1.7, acetaminophen less than 2, alcohol level less than 3. Radiology studies were reviewed and remarkable for Last Impressions Head CT 09/26/171950 Signed Impressions: CONCLUSION: Unremarkable study. Chest X-Ray 09/26/171950 Signed Impressions: CONCLUSION: No acute cardiopulmonary disease. The patient will be admitted to the hospital for observation and a TIA workup. The patient was given aspirin 325 mg p.o. 1. The patient's results were discussed with the patient, including the plan of care. I explained that further testing and/ or monitoring is indicated based on the patient's history, examination, and/ or laboratory findings. Therefore, I recommended admission for additional evaluation. The patient expressed understanding and was agreeable with this plan. The patient was admitted to the hospital in stable condition and [facility] Physician Communication Physician Communication The patient's case including history, pertinent physical examination findings, and laboratory studies were discussed with Dr. Peacock. It was agreed that [facility] Diagnosis Primary Impression: Transient neurological symptoms Admitting Information Admitting Physician Requests: Observation Mary Beth Fraga MD Sep 26, 2017 20:36
--- NOTE | 2017-09-26 20:36 | RADRPT ---
EXAM DATE: 09/26/2017 8:24 PM EDT AGE/SEX: 32 years / Female INDICATIONS: Palpitations. CLINICAL DATA: This is the patient's initial encounter. Patient reports that signs and symptoms have been present for 1 week and indicates a pain score of 0/10. MEDICAL/SURGICAL HISTORY: Hypothyroidism. None. COMPARISON: No prior exams available for comparison. FINDINGS: The lungs are clear without infiltrate, nodule, or mass. There is no appreciable pleural effusion for technique. Heart and mediastinum are unremarkable. CONCLUSION: No acute cardiopulmonary disease. Electronically signed by: Prem Castro MD 09/26/2017 8:35 PM EDT
--- NOTE | 2017-09-26 21:11 | RADRPT ---
EXAM DATE: 09/26/2017 8:51 PM EDT AGE/SEX: 32 years / Female INDICATIONS: Right facial and hand numbness, slurred speech, blurry vision. CLINICAL DATA: This is the patient's initial encounter. Patient reports that signs and symptoms have been present for 1 day and indicates a pain score of 5/10. MEDICAL/SURGICAL HISTORY: . Factor II clotting disorder. None. RADIATION DOSE: 37.12 CTDI (mGy) [place] [facility] [place]. . TECHNIQUE: CT of the head without contrast. Using automated exposure control and adjustment of the mA and/or kV according to patient size, radiation dose was kept as low as reasonably achievable to ob tain optimal diagnostic quality images. FINDINGS: There is no evidence for intracranial hemorrhage, mass effect, mass lesions, edema, or extra-axial fl uid collections. The visualized bony structures appear intact. The ventricles are normal size for t he patient's age. There are no signs of acute infarction for technique. CONCLUSION: Unremarkable study. Electronically signed by: Prem Castro MD 09/26/2017 9:09 PM EDT
[2017-09-26 21:15] LABS: BILIRUBIN, URINE NEG (NEG); BLOOD, URINE NEG (NEG); GLUCOSE,URINE NEG (NEG); KETONE, URINE NEG (NEG); MUCUS URINE FEW /lpf (OCC); NITRITE,URINE NEG (NEG); SQUAMOUS EPITHELIAL CELL URINE <1 /hpf (0-5); URINE COLOR COLORLESS (YELLW/STRAW); URINE LEUKOCYTE ESTERASE NEG (NEG)
[2017-09-26 21:23] LABS: ACETAMINOPHEN LESS THAN 2.0 MCG/ML (10.0-30.0); ALBUMIN 4.3 GM/DL (3.4-5.0); ALKALINE PHOSPHATASE 91 U/L (45-117); ALT (GPT) 30 U/L (10-53); AST (GOT) 33 U/L (15-37); BICARBONATE 24.7 MEQ/L (21.0-32.0); BLOOD UREA NITROGEN 17 MG/DL (7-18); CALCIUM 9.4 MG/DL (8.5-10.1); CHLORIDE 103 MEQ/L (98-107); CREATININE 0.99 MG/DL (0.50-1.00); GLOMERULAR FILTRATION RATE 65 ML/MIN (>89); GLUCOSE,RANDOM 88 MG/DL (74-106); MAGNESIUM 2.1 MG/DL (1.5-2.5); SODIUM (NA) 138 MEQ/L (136-145); TOTAL BILIRUBIN ADULT 0.4 MG/DL (0.2-1.0); TOTAL PROTEIN 8.5 GM/DL (6.4-8.2); TROPONIN I LESS THAN 0.02 NG/ML (0.02-0.05)
[2017-09-26] MEDS: SODIUM CHLOR 0.9% 1000 ML INJ 1,000 ML IV SCH (21:42)
[2017-09-26 21:44] VITALS: BP 125/61; PULSE 90; RESP 18; O2SAT 100
[2017-09-26] MEDS ORDERED: ACETAMINOPHEN 325 MG TAB PO ONE (22:00)
[2017-09-26] MEDS ORDERED: ASPIRIN 325 MG TAB PO ONE (22:00)
[2017-09-26 22:51] VITALS: BP 117/61; PULSE 85; RESP 18; O2SAT 97
[2017-09-26] MEDS ORDERED: SODIUM CHLORIDE 0.9% FLUSH 10 ML FLUSH IV FLUSH PRN (23:00)
[2017-09-26] MEDS ORDERED: DEXTROSE 50% IN WATER 50 ML VIAL(D50) IV PUSH PRN (23:00)
[2017-09-26] MEDS ORDERED: GLUCAGON 1 MG/ML VIAL OTHER PRN (23:00)
[2017-09-27] VITALS (7 sets, daily range): BP systolic 102–119; BP diastolic 56–70; PULSE 67–82; RESP 16–18; TEMP 97.8–98.6; O2SAT 96–99
--- NOTE | 2017-09-27 00:41 | HHI.HP ---
[facility] Service [facility] Primary Care Physician Non-Staff Admission Diagnosis Transient neurologic symptoms, h/o coagulation disorder Diagnoses: Travel History International Travel<30 Days: No Contact w/Intl Traveler <30 Da: No Traveled to Known Affected Are: No History of Present Illness 32-year-old female with a past medical history significant for hyperthyroidism, factor II deficiency and unspecified autoimmune disorder presents to the emergency department for the evaluation of right-sided vision loss with dysarthria. The patient was reports that she was eating dinner with some friends when she noticed loss of vision of her right visual field. She also states she had slurred speech and word finding difficulty with right-sided facial numbness and right hand numbness. The patient has had previous episodes similar to this but they were always shorter in duration. She also complains of intermittent shortness of breath, none at this time. Denies any chest pain. No abdominal pain. No nausea/vomiting/diarrhea. No fevers/chills. Review of Systems Except as stated in HPI: all other systems reviewed are Neg Past Family Social History Past Medical History Hyperthyroidism Factor II deficiency Unspecified autoimmune disorder Past Surgical History Thyroid ablation Reported Medications Reported Meds & Active Scripts Active Reported Synthroid (Levothyroxine Sodium) 100 Mcg Tab 100 Mcg PO DAILY Allergies: Coded Allergies: cefaclor (Unverified Allergy, Severe, Hives, 09/26/17) penicillin G (Unverified Allergy, Severe, Hives, 09/26/17) azithromycin (Unverified Allergy, Intermediate, Hives, 09/26/17) Family History Negative for CAD/DM Social History Occasional alcohol. Negative for tobacco and illicit drugs. Physical Exam Vital Signs Vital Signs Date Time Temp Pulse Resp B/P (MAP) Pulse Ox O2 Delivery O2 Flow Rate FiO2 09/26/17 23:53 09/26/17 22:51 85 18 117/61 (79) 97 Room Air 09/26/17 21:44 90 18 125/61 (82) 100 Room Air 09/26/17 20:10 102 18 142/88 (106) 99 Room Air 6/11/18 20:09 98 18 99 Room Air 09/26/17 19:37 98.4 113 18 161/81 (107 99 Physical Exam GENERAL: female lying in bed SKIN: No rashes, ecchymoses or lesions. Cool and dry. HEAD: Atraumatic. Normocephalic. No temporal or scalp tenderness. EYES: Pupils equal round and reactive. Extraocular motions intact. No scleral icterus. No injection or drainage. ENT: Nose without bleeding, purulent drainage or septal hematoma. Throat without erythema, tonsillar hypertrophy or exudate. Uvula midline. Airway patent. NECK: Trachea midline. No JVD or lymphadenopathy. Supple, nontender, no meningeal signs. CARDIOVASCULAR: Regular rate and rhythm without murmurs, gallops, or rubs. RESPIRATORY: Clear to auscultation. Breath sounds equal bilaterally. No wheezes , rales, or rhonchi. GASTROINTESTINAL: Abdomen soft, non-tender, nondistended. No hepato-splenomegaly , or palpable masses. No guarding. MUSCULOSKELETAL: Extremities without clubbing, cyanosis, or edema. No joint tenderness, effusion, or edema noted. No calf tenderness. NEUROLOGICAL: Awake and alert. Cranial nerves II through XII intact. Motor and sensory grossly within normal limits. Five out of 5 muscle strength in all muscle groups. Normal speech. Laboratory Laboratory Tests Test 09/26/17 20:02 09/26/17 20:28 White Blood Count 4.3 Red Blood Count 4.61 Hemoglobin 13.4 Hematocrit 39.7 Mean Corpuscular Volume 86.1 Mean Corpuscular Hemoglobin 29.0 Mean Corpuscular Hemoglobin Concent 33.7 Red Cell Distribution Width 16.4 Platelet Count 212 Mean Platelet Volume 8.0 Neutrophils (%) (Auto) 53.5 Lymphocytes (%) (Auto) 35.1 Monocytes (%) (Auto) 9.5 Eosinophils (%) (Auto) 1.5 Basophils (%) (Auto) 0.4 Neutrophils # (Auto) 2.3 Lymphocytes # (Auto) 1.5 Monocytes # (Auto) 0.4 Eosinophils # (Auto) 0.1 Basophils # (Auto) 0.0 CBC Comment DIFF FINAL Differential Comment Prothrombin Time 9.8 Prothromb Time International Ratio 1.0 Activated Partial Thromboplast Time 26.8 Blood Urea Nitrogen 17 Creatinine 0.99 Random Glucose 88 Total Protein 8.5 Albumin 4.3 Calcium Level 9.4 Magnesium Level 2.1 Alkaline Phosphatase 91 Aspartate Amino Transf (AST/SGOT) 33 Alanine Aminotransferase (ALT/SGPT) 30 Total Bilirubin 0.4 Sodium Level 138 Potassium Level 4.7 Chloride Level 103 Carbon Dioxide Level 24.7 Anion Gap 10 Estimat Glomerular Filtration Rate 65 Total Creatine Kinase 501 Creatine Kinase MB 4.5 Creatine Kinase MB % 0.9 Troponin I LESS THAN 0.02 Lipase 85 Thyroid Stimulating Hormone 3rd Gen 54.400 Salicylates Level LESS THAN 1.7 Acetaminophen Level LESS THAN 2.0 Ethyl Alcohol Level LESS THAN 3 Urine Color COLORLESS Urine Turbidity CLEAR Urine pH 6.0 Urine Specific [place] 1.004 Urine Protein NEG Urine Glucose (UA) NEG Urine Ketones NEG Urine Occult Blood NEG Urine Nitrite NEG Urine Bilirubin NEG Urine Urobilinogen LESS THAN 2.0 Urine Leukocyte Esterase NEG Urine WBC LESS THAN 1 Urine Squamous Epithelial Cells <1 Urine Mucus FEW Microscopic Urinalysis Comment CULT NOT INDICATED Urine Opiates Screen NEG Urine Barbiturates Screen NEG Urine Amphetamines Screen NEG Urine Benzodiazepines Screen NEG Urine Cocaine Screen NEG Urine Cannabinoids Screen NEG Result Diagram: 09/26/17200109/26/172001 Caprini VTE Risk Assessment Caprini VTE Risk Assessment: No/Low Risk (score <= 1) Caprini Risk Assessment Model Point Value = 1 Point Value = 2 Point Value = 3 Point Value = 5 Age 41-60 Minor surgery BMI > 25 kg/m2 Swollen legs Varicose veins or History of unexplained or recurrent spontaneous Oral contraceptives or hormone replacement Sepsis (< 1 month) Serious lung disease, including pneumonia (< 1 month) Abnormal pulmonary function Acute myocardial infarction Congestive heart failure (< 1 month) History of inflammatory bowel disease Medical patient at bed rest Age 61-74 Arthroscopic surgery Major open surgery (> 45 min) Laparoscopic surgery (> 45 min) Malignancy Confined to bed (> 72 hours) Immobilizing plaster cast Central venous access Age >= 75 History of VTE Family history of VTE Factor V Leiden Prothrombin [id number] Lupus anticoagulant Anticardiolipin antibodies Elevated serum homocysteine Heparin-induced thrombocytopenia Other congenital or acquired thrombophilia Stroke (< 1 month) Elective arthroplasty Hip, pelvis, or leg fracture Acute spinal cord injury (< 1 month) Prophylaxis Regimen Total Risk Factor Score Risk Level Prophylaxis Regimen 0-1 Low Early ambulation 2 Moderate Order ONE of the following: *Sequential Compression Device (SCD) *Heparin 5000 units SQ BID 3-4 Higher Order ONE of the following medications: *Heparin 5000 units SQ TID *Enoxaparin/Lovenox 40 mg SQ daily (WT < 150 kg, CrCl > 30 mL/min) *Enoxaparin/Lovenox 30 mg SQ daily (WT < 150 kg, CrCl > 10-29 mL/min) *Enoxaparin/Lovenox 30 mg SQ BID (WT < 150 kg, CrCl > 30 mL/min) AND/OR *Sequential Compression Device (SCD) 5 or more Highest Order ONE of the following medications: *Heparin 5000 units SQ TID (Preferred with Epidurals) *Enoxaparin/Lovenox 40 mg SQ daily (WT < 150 kg, CrCl > 30 mL/min) *Enoxaparin/Lovenox 30 mg SQ daily (WT < 150 kg, CrCl > 10-29 mL/min) *Enoxaparin/Lovenox 30 mg SQ BID (WT < 150 kg, CrCl > 30 mL/min) AND *Sequential Compression Device (SCD) Assessment and Plan Assessment and Plan Assessment/plan: 1. Vision loss/dysarthria/numbness May be secondary to hypothyroidism status post ablation TIA workup pending; MRI brain and carotid ultrasound Possible complex migraine Neurology consulted, appreciate recommendations 2. Hypothyroidism Patient is status post ablation Sees endocrinology, Synthroid recently increased 2 weeks ago Continue home Synthroid Outpatient follow-up 3. Factor II deficiency/autoimmune disorder Outpatient follow-up FEN N.p.o. Electrolytes: Monitor and replete as needed NS at 70 cc/hour Carolina Peacock MD Sep 27, 2017 00:41
--- NOTE | 2017-09-27 05:10 | EKG ---
Date Performed: 09/26/2017 Time Performed: 20:00:38 PTAGE: 32 years EKG: Sinus rhythm POSSIBLE LEFT ATRIAL ENLARGEMENT BORDERLINE ECG Compared to prior electrocardiogram, rate has decrea sed . PREVIOUS TRACING : 04/10/2017 22.33 DOCTOR: Tesfaye Blackwell Interpretating Date/Time 09/27/2017 05:09:45
[2017-09-27 06:59] LABS: AUTOMATED NEUTROPHIL # 1.6 TH/MM3 (1.8-7.7); BASOPHIL % 0.3 % (0.0-2.0); EOSINOPHIL % 1.1 % (0.0-4.0); HEMATOCRIT 35.7 % (35.0-46.0); HEMOGLOBIN 11.9 GM/DL (11.6-15.3); LYMPH % 44.9 % (9.0-44.0); LYMPHOCYTE # 1.6 TH/MM3 (1.0-4.8); MEAN CORPUSCULAR HEMOGLOBIN 29.1 PG (27.0-34.0); MEAN CORPUSCULAR HGB CONC 33.5 % (32.0-36.0); MEAN PLATELET VOLUME 7.8 FL (7.0-11.0); MONO % 9.5 % (0.0-8.0); MONOCYTE # 0.3 TH/MM3 (0-0.9); NEUT % 44.2 % (16.0-70.0); PLATELET COUNT 182 TH/MM3 (150-450); RED CELL DISTRIBUTION WIDTH 16.2 % (11.6-17.2); WHITE BLOOD COUNT 3.6 TH/MM3 (4.0-11.0)
[2017-09-27] MEDS ORDERED: LEVOTHYROXINE SODIUM 100 MCG TAB PO SCH (07:00)
[2017-09-27 07:18] LABS: BICARBONATE 26.9 MEQ/L (21.0-32.0); BLOOD UREA NITROGEN 13 MG/DL (7-18); CALCIUM 8.1 MG/DL (8.5-10.1); CHLORIDE 109 MEQ/L (98-107); CHOLESTEROL 167 MG/DL (120-200); CHOLESTEROL/ HDL RATIO 2.76 RATIO; CREATININE 0.71 MG/DL (0.50-1.00); GLOMERULAR FILTRATION RATE 96 ML/MIN (>89); GLUCOSE,RANDOM 89 MG/DL (74-106); HDL CHOLESTEROL 60.4 MG/DL (40.0-60.0); LDL CHOLESTEROL 99 MG/DL (0-99); SODIUM (NA) 143 MEQ/L (136-145); TRIGLYCERIDES 39 MG/DL (42-150)
[2017-09-27] MEDS: INSULIN ASPART SUPPLEMENTAL SCALE SQ SCH ×4 (08:00→21:35)
[2017-09-27] MEDS: ASPIRIN 325 MG TAB PO SCH (10:01)
[2017-09-27] MEDS: SODIUM CHLORIDE 0.9% FLUSH 10 ML FLUSH IV FLUSH SCH ×2 (10:01→21:35)
--- NOTE | 2017-09-27 10:20 | RADRPT ---
EXAM DATE: 09/27/2017 10:14 AM EDT AGE/SEX: 32 years / Female INDICATIONS: Transient ischemic attack. CLINICAL DATA: This is the patient's initial encounter. Patient reports that signs and symptoms have been present for 2 days and indicates a pain score of 0/10. MEDICAL/SURGICAL HISTORY: . Thyroid disease. section. Thyroid ablation. Radiation th erapy. COMPARISON: No prior exams available for comparison. VELOCITY PARAMETERS: ICA/CCA Ratio: Right 0.9 , Left 0.8 ICA: Right 90 cm/sec, Left 96 cm/sec CCA: Right 100 cm/sec, Left 128 cm/sec ECA: Right 105 cm/sec, Left 76 cm/sec Vertebral: Right 44 cm/sec antegrade, Left 60 cm/sec antegrade FINDINGS: Right Carotid: No significant stenosis is visualized. The waveforms are within normal limits. Left Carotid: No significant stenosis is visualized. The waveforms are within normal limits. Other: None. CONCLUSION: 1. Right Internal Carotid Artery: No significant stenosis or atherosclerotic plaque is visualized. 2. Left Internal Carotid Artery: No significant stenosis or atherosclerotic plaque is visualized. 3. Antegrade flow in both vertebral arteries. Electronically signed by: Deniz Elmore MD 09/27/2017 10:19 AM EDT
--- NOTE | 2017-09-27 11:49 | RADRPT ---
EXAM DATE: 09/27/2017 11:31 AM EDT AGE/SEX: 32 years / Female INDICATIONS: . Slurred speech and word finding difficulty with right-sided facial numbness and ri ght hand numbness. CLINICAL DATA: This is the patient's subsequent encounter. Patient reports that signs and symptoms h ave been present for 2 days and indicates a pain score of 0/10. MEDICAL/SURGICAL HISTORY: . 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 Thyroid ablation COMPARISON: No prior exams available for comparison. TECHNIQUE: Multiplanar, multisequence examination of the brain was performed without contrast. FINDINGS: Cerebrum: The ventricles are normal for age. No evidence of midline shift, mass lesion, hemorrhage or acute infarction. No extraaxial fluid collections are seen. The pituitary gland and suprasellar cistern are normal in configuration. White Matter: No significant signal abnormalities are seen in the white matter. Posterior Fossa: The cerebellum and brainstem are intact. The 4th ventricle is midline. The cerebel lopontine angle is unremarkable. The cerebellar tonsils are normal in position. Diffusion Imaging: No focal areas of restricted diffusion are seen. No evidence of acute infarction . Extracranial: The visualized portions of the orbits and paranasal sinuses are unremarkable. CONCLUSION: 1. Negative MR Brain non contrast. Electronically signed by: Mika Lewis MD 09/27/2017 11:48 AM EDT
[2017-09-27] MEDS ORDERED: DOCUSATE SODIUM 50 MG/SENNA 8.6 MG TAB PO ONE (12:30)
[2017-09-27] MEDS ORDERED: MAGNESIUM HYDROXIDE SUSP 30 ML CUP PO ONE (12:30)
--- NOTE | 2017-09-27 15:59 | PD.CONS ---
History of Present Illness Service Neurology Consult Requested By Medical for TIA, migraine Primary Care Physician Non-Staff History of Present Illness 32-year-old female admitted for recurrent episodes affecting her right side. She had multiple episodes all stereotypically the same involving right facial numbness right arm numbness some difficulty in speech. In addition to visual scotomas coming to the right eye. She has had this visual symptom before several years ago felt to be migraines. Episodes last for minutes her symptoms followed by holocephalic headache. She also has little light sensitivity. Denies any nausea vomiting fevers night sweats or chills. She lives in [facility] and is followed by emr implementation specialist and heater worker. No history of stroke or seizure or TIA. Follow with a history of migraines. She also mentioned she had some episodes of left eye ptosis and occasional diplopia in the past. These are also transient. 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 Negative for tobacco and illicit drugs. Review of Systems All other ROS: ROS reviewed as documented in chart Past Family Social History Allergies: Coded Allergies: cefaclor (Unverified Allergy, Severe, Hives, 09/26/17) penicillin G (Unverified Allergy, Severe, Hives, 09/26/17) azithromycin (Unverified Allergy, Intermediate, Hives, 09/26/17) Active Ordered Medications Current Medications Medications (Trade) Dose Ordered Sig/Td Route Start Time Stop Time Status Last Admin Sodium Chloride 1,000 ml @ 70 mls/hr [id number] IV 09/26/17 21:00 09/26/17 21:42 (NS Flush) 2 ml BID IV FLUSH 09/27/17 09:00 09/27/17 10:01 (NS Flush) 2 ml UNSCH PRN IV FLUSH 09/26/17 23:00 (Aspirin) 325 mg DAILY PO 09/27/17 09:00 09/27/17 10:01 (NovoLOG SUPPLEMENTAL SCALE) 1 ACHS SQ 09/27/17 08:00 (D50w (Vial) Inj) 50 ml UNSCH PRN IV PUSH 09/26/17 23:00 (Glucagon Inj) 1 mg UNSCH PRN OTHER 09/26/17 23:00 (Synthroid) 150 mcg DAILY@0600 PO 09/28/17 06:00 Exam I&O / VS Vital Signs Date Time Temp Pulse Resp B/P (MAP) Pulse Ox O2 Delivery O2 Flow Rate FiO2 09/27/17 12:00 98.4 75 16 118/65 (82) 98 09/27/17 08:00 97.8 67 16 103/59 (74) 98 09/27/17 04:54 97.9 67 16 107/58 (74) 99 09/27/17 01:26 98.3 82 18 118/56 (76) 96 09/26/17 23:53 09/26/17 22:51 85 18 117/61 (79) 97 Room Air 09/26/17 21:44 90 18 125/61 (82) 100 Room Air 09/26/17 20:10 102 18 142/88 (106) 99 Room Air 09/26/17 20:09 98 18 99 Room Air 09/26/17 19:37 98.4 113 18 161/81 (107) 99 General: Alert and Oriented Eye: EOMI Respiratory: Non-labored respirations Musculoskeletal: ROM Neurologic: Alert, Oriented, Normal sensory, Normal motor, No focal defects, CN II-XII intact, Gag reflex normal, Normal DTR's Psychiatric: Cooperative, Appropriate mood & affect, Normal judgement Review/Management Diagnosis/Plan: (1) Transient neurological symptoms ICD Codes: R29.818 - Other symptoms and signs involving the nervous system Status: Acute Plan: Recurrent stereotypical episodes Suspicious for left hemispheric onset. Unlikely to be TIA or stroke as there are recurrent stereotypical. Suspect complex migraine; exclude partial seizure although there is no loss of consciousness with her episodes Recommendations TSH level is significantly elevated 54; this may be contributing to some of her symptoms defer to medical team for further adjustment likely needs to be done by her outpatient physicians EEG Cerebrovascular imaging with feasible as she would like to leave and be followed up in the outpatient setting Aspirin 81 mg daily She should follow-up with her heater worker to exclude any change in blood thinners with her history of mild hypercoagulable state She also will be following up with emr implementation specialist regarding some of her current symptomatology We will order myasthenia gravis panel as well as inflammatory markers follow-up in the outpatient setting Follow-up with us 2-3 weeks (2) Migraine ICD Codes: G43.909 - Migraine, unspecified, not intractable, without status migrainosus Status: Chronic Hernandez Caceres MD Sep 27, 2017 15:59
[2017-09-27] MEDS ORDERED: LEVO.15 PO (16:08)
[2017-09-27] MEDS ORDERED: ASPI81TA23 PO (16:08)
[2017-09-27 16:47] LABS: HEMOGLOBIN A1C 5.1 % (4.3-6.0)
[2017-09-27] MEDS: SODIUM CHLOR 0.9% 1000 ML INJ 1,000 ML IV SCH (17:47)
[2017-09-27 18:26] LABS: C-REACTIVE PROTEIN LESS THAN 0.29 MG/DL (0.00-0.30)
[2017-09-27] MEDS ORDERED: IOHEXOL 350 MG/ML 10 ML VIAL (for RAD DIAG) IVCONTRAST ONE (20:00)
--- NOTE | 2017-09-27 20:37 | RADRPT ---
EXAM DATE: 09/27/2017 8:32 PM EDT AGE/SEX: 32 years / Female INDICATIONS: Right face and arm numbness. Difficulty speaking. CLINICAL DATA: This is the patient's initial encounter. Patient reports that signs and symptoms have been present for 1 day and indicates a pain score of 0/10. MEDICAL/SURGICAL HISTORY: . Thyroid disease. section. RADIATION DOSE: 28.48 CTDI (mGy) ; Combined studies COMPARISON: No prior exams available for comparison. TECHNIQUE: Volumetric scanning was performed using a multirow detector CT scanner during bolus infus ion of 95 ml Omnipaque 350 (iohexol) nonionic water-soluble contrast as a cumulative dose for multip le exams. The data was postprocessed with a variety of visualization algorithms including full-volu me maximum intensity projection, multiplanar sliding thin-slab reformation, curved-planar reformation , and surface-rendering techniques. Using automated exposure control and adjustment of the mA and/or kV according to patient size, radiation dose was kept as low as reasonably achievable to obtain opti mal diagnostic quality images. FINDINGS: Contrast bolus is dilute the venous contamination. There is no calcific vascular disease. I do not se e evidence for hemodynamically significant stenosis. Skull base is not visualized. Elevated flow velocities and ICA/CCA ratios have been found to correlate with increased degrees of ve ssel stenosis, calculated as percentage of diameter relative to a normal segment of distal ICA/CCA. CONCLUSION: 1. Limited exam, negative for hemodynamically significant stenosis. 2. Previous carotid ultrasound 09/27/2017 was unremarkable. Electronically signed by: Guanakito Lewis MD 09/27/2017 8:35 PM EDT
--- NOTE | 2017-09-27 20:58 | RADRPT ---
EXAM DATE: 09/27/2017 8:28 PM EDT AGE/SEX: 32 years / Female INDICATIONS: Right face and arm numbness. Difficulty speaking. CLINICAL DATA: This is the patient's initial encounter. Patient reports that signs and symptoms have been present for 1 day and indicates a pain score of 0/10. MEDICAL/SURGICAL HISTORY: . Thyroid disease. section. RADIATION DOSE: 28.48 CTDI (mGy) ; Combined studies COMPARISON: No prior exams available for comparison. TECHNIQUE: Volumetric scanning was performed using a multi-row detector CT scanner during bolus infu regina of 95 ml Omnipaque 350 (iohexol) nonionic water-soluble contrast as a cumulative dose for multi ple exams. The data was post processed with a variety of visualization algorithms including full vo lume maximum intensity projection, multi-planar sliding thin slab reformation, curved planar reformat ion, and surface rendering techniques. Using automated exposure control and adjustment of the mA and /or kV according to patient size, radiation dose was kept as low as reasonably achievable to obtain o ptimal diagnostic quality images. FINDINGS: There is excellent visualization of the major intracranial arteries out to the second-order branch ve ssels. There is no evidence for aneurysm, vessel truncation or stenosis, and no evidence for vascula r malformation. CONCLUSION: 1. Negative for major branch vessel occlusion. 2. Small base of the skull aneurysm cannot be entirely excluded. Electronically signed by: Guanakito Lewis MD 09/27/2017 8:57 PM EDT
--- NOTE | 2017-09-27 21:42 | MG ---
cc: Hernandez Caceres MD, Mandeep MD EEG NUMBER [id number]. An 8-9 Hz alpha activity, 20-40 microvolts, low-amplitude beta in the frontal channels. Good anterior to posterior gradient. Good EEG variability and reactivity. Mild bitemporal episodes of slight slowing suggestive of drowsy state. Hyperventilation performed without any abnormal response. Very tiny sharp transients temporal region. Good EEG variability reactivity. Driving with photic stimulation at the beginning of the recording. Single 12-lead EKG showed sinus rhythm. INTERPRETATION: Overall normal awake, drowsy electroencephalogram. Clinical correlation. MD ANNA Noriega/ , 09:32 PM , 09:40 PM
[2017-09-28 04:41] VITALS: BP 119/63; PULSE 76; RESP 16; TEMP 97.9; O2SAT 98
[2017-09-28] MEDS ORDERED: LEVOTHYROXINE SODIUM 150 MCG TAB PO SCH (06:00)
[2017-09-28 07:26] VITALS: BP 113/64; PULSE 61; RESP 18; TEMP 98.1; O2SAT 99
[2017-09-28] MEDS: INSULIN ASPART SUPPLEMENTAL SCALE SQ SCH (08:00)
[2017-09-28] MEDS: SODIUM CHLORIDE 0.9% FLUSH 10 ML FLUSH IV FLUSH SCH (08:14)
[2017-09-28] MEDS: ASPIRIN 325 MG TAB PO SCH (08:15)
--- NOTE | 2017-09-28 09:28 | HHI.PR ---
Review/Management Diagnosis/Plan: (1) Transient neurological symptoms ICD Codes: R29.818 - Other symptoms and signs involving the nervous system Status: Acute Plan: Recurrent stereotypical episodes Suspicious for left hemispheric onset. Unlikely to be TIA or stroke as there are recurrent stereotypical. Suspect complex migraine; exclude partial seizure although there is no loss of consciousness with her episodes Recommendations EEG overall normal minimal nonspecific changes CTA carotids normal, CT CT brain normal however radiologist mentions a cannulated skull base aneurysm suspect less likely and not related to her symptoms however we will get an MRI of the brain Aspirin 81 mg daily She should follow-up with her exerciser horse to exclude any change in blood thinners with her history of mild hypercoagulable state She also will be following up with hand spring former regarding some of her current symptomatology We will order myasthenia gravis panel as well as inflammatory markers follow-up in the outpatient setting Follow-up with us 2-3 weeks (2) Migraine ICD Codes: G43.909 - Migraine, unspecified, not intractable, without status migrainosus Status: Chronic Subjective Subjective Comments No acute events reported No headache No chest pain No dyspnea Active Medications Current Medications Medications (Trade) Dose Ordered Sig/Td Route Start Time Stop Time Status Last Admin Sodium Chloride 1,000 ml @ 70 mls/hr [id number] IV 09/26/17 21:00 09/27/17 17:47 (NS Flush) 2 ml BID IV FLUSH 09/27/17 09:00 09/27/17 10:01 (NS Flush) 2 ml UNSCH PRN IV FLUSH 09/26/17 23:00 (Aspirin) 325 mg DAILY PO 09/27/17 09:00 09/27/17 10:01 (NovoLOG SUPPLEMENTAL SCALE) 1 ACHS SQ 09/27/17 08:00 (D50w (Vial) Inj) 50 ml UNSCH PRN IV PUSH 09/26/17 23:00 (Glucagon Inj) 1 mg UNSCH PRN OTHER 09/26/17 23:00 (Synthroid) 150 mcg DAILY@0600 PO 09/28/17 06:00 09/28/17 06:04 Allergies Allergies Coded Allergies cefaclor (Unverified Allergy, Severe, Hives, 09/26/17) penicillin G (Unverified Allergy, Severe, Hives, 09/26/17) azithromycin (Unverified Allergy, Intermediate, Hives, 09/26/17) Review of Systems All other ROS: ROS reviewed as documented in chart Exam I&O / VS Vital Signs Date Time Temp Pulse Resp B/P (MAP) Pulse Ox O2 Delivery O2 Flow Rate FiO2 09/28/17 07:26 98.1 61 18 113/64 (80) 99 09/28/17 04:41 97.9 76 16 119/63 (81) 98 09/27/17 23:37 98.6 74 16 119/70 (86) 98 09/27/17 20:33 98.2 73 16 102/61 (75) 99 09/27/17 16:00 98.1 73 16 108/58 (75) 98 09/27/17 12:00 98.4 75 16 118/65 (82) 98 General: Alert and Oriented Eye: EOMI Respiratory: Non-labored respirations Musculoskeletal: ROM Neurologic: Alert, Oriented, Normal sensory, Normal motor, No focal defects, CN II-XII intact, Gag reflex normal, Normal DTR's Psychiatric: Cooperative, Appropriate mood & affect, Normal judgement Objective Micro and Labs Laboratory Tests Test 09/27/17 16:43 Erythrocyte Sedimentation Rate 10 C-Reactive Protein LESS THAN 0.29 Vitamin B12 Level 305 Free Thyroxine 0.86 Total Triiodothyronine 75 Hernandez Caceres MD Sep 28, 2017 09:28
--- NOTE | 2017-09-28 10:04 | HHI.PR ---
Subjective Remarks Patient says she is feeling all right. Would like to go home. Denies any chest pain or shortness of breath. Denies any leg weakness or dizziness. Objective Vital Signs Date Time Temp Pulse Resp B/P (MAP) Pulse Ox O2 Delivery O2 Flow Rate FiO2 09/28/17 07:26 98.1 61 18 113/64 (80) 99 09/28/17 04:41 97.9 76 16 119/63 (81) 98 09/27/17 23:37 98.6 74 16 119/70 (86) 98 09/27/17 20:33 98.2 73 16 102/61 (75) 99 09/27/17 16:00 98.1 73 16 108/58 (75) 98 09/27/17 12:00 98.4 75 16 118/65 (82) 98 I/O 09/27/17 09/27/17 09/27/17 09/28/17 09/28/17 09/28/17 07:00 15:00 23:00 07:00 15:00 23:00 Intake Total 200 ml Balance 200 ml Intake Oral 200 ml Result Diagram: 09/27/17 0609/27/17 06 Objective Remarks GENERAL: Patient sitting up in bed. Appears comfortable. Alert and oriented 3. SKIN: Warm and dry. HEAD: Normocephalic. EYES: No scleral icterus. No injection or drainage. NECK: Supple, trachea midline. No JVD. CARDIOVASCULAR: Regular rate and rhythm without murmurs, gallops, or rubs. RESPIRATORY: Breath sounds equal bilaterally. No accessory muscle use. GASTROINTESTINAL: Abdomen soft, non-tender, nondistended. MUSCULOSKELETAL: No cyanosis, or edema. BACK: Nontender without obvious deformity. No CVA tenderness. A/P Assessment and Plan //Vision loss/dysarthria/numbness May be secondary to hypothyroidism status post ablation TIA workup pending; MRI brain and carotid ultrasound Possible complex migraine Neurology consulted, appreciate recommendations = Allergies cleared for discharge. I discussed with radiology. There is no evidence for an aneurysm at the base of the skull, however CTA as an imaging modality cannot rule this out. // Hypothyroidism Patient is status post ablation Sees endocrinology, Synthroid recently increased 2 weeks ago Continue home Synthroid Outpatient follow-up = Have increased Synthroid 150 mcg daily. Patient is to follow-up with cold food packer in 1 week. //Factor II deficiency/autoimmune disorder Outpatient follow-up Discharge Planning Discharge home in good condition. Continue regular diet. Activity ad monica. Please see discharge medication reconciliation for medication list. Follow with neurology, primary care, endocrinology as outpatient. Daryl Patrick MD Sep 28, 2017 10:04
--- NOTE | 2017-09-28 10:08 | HHI.DS ---
Discharge Summary Admission Date Sep 26, 2017 at 22:07 Discharge Date: Sep 28, 2017 Admitting Diagnosis Transient neurologic symptoms, h/o coagulation disorder (1) Migraine ICD Code: G43.909 - Migraine, unspecified, not intractable, without status migrainosus Status: Chronic (2) Transient neurological symptoms ICD Code: R29.818 - Other symptoms and signs involving the nervous system Status: Acute Procedures no invasive procedures Brief History - From Admission 32-year-old female with a past medical history significant for hyperthyroidism, factor II deficiency and unspecified autoimmune disorder presents to the emergency department for the evaluation of right-sided vision loss with dysarthria. The patient was reports that she was eating dinner with some friends when she noticed loss of vision of her right visual field. She also states she had slurred speech and word finding difficulty with right-sided facial numbness and right hand numbness. The patient has had previous episodes similar to this but they were always shorter in duration. She also complains of intermittent shortness of breath, none at this time. Denies any chest pain. No abdominal pain. No nausea/vomiting/diarrhea. No fevers/chills. CBC/BMP: 09/27/17 0600 09/27/17 0600 Significant Findings Laboratory Tests Test 09/26/17 20:02 09/26/17 20:28 09/27/17 06:00 09/27/17 16:43 Monocytes (%) (Auto) 9.5 % (0.0-8.0) 9.5 % (0.0-8.0) Total Protein 8.5 GM/DL (6.4-8.2) Estimat Glomerular Filtration Rate 65 ML/MIN (>89) Total Creatine Kinase 501 U/L (26-192) Creatine Kinase MB 4.5 NG/ML (0.5-3.6) Troponin I LESS THAN 0.02 NG/ML Thyroid Stimulating Hormone 3rd Gen 54.400 uIU/ML (0.358-3.740) Salicylates Level LESS THAN 1.7 MG/DL Acetaminophen Level LESS THAN 2.0 MCG/ML Urine Mucus FEW /lpf (OCC) White Blood Count 3.6 TH/MM3 (4.0-11.0) Lymphocytes (%) (Auto) 44.9 % (9.0-44.0) Neutrophils # (Auto) 1.6 TH/MM3 (1.8-7.7) Calcium Level 8.1 MG/DL (8.5-10.1) Chloride Level 109 MEQ/L (98-107) Triglycerides Level 39 MG/DL (42-150) HDL Cholesterol 60.4 MG/DL (40.0-60.0) Imaging Last Impressions Neck CTA 09/27/17 Signed Impressions: CONCLUSION: 1. Limited exam, negative for hemodynamically significant stenosis. 2. Previous carotid ultrasound 09/27/2017 was unremarkable. Head CTA 09/27/17 Signed Impressions: CONCLUSION: 1. Negative for major branch vessel occlusion. 2. Small base of the skull aneurysm cannot be entirely excluded. Carotid Artery Ultrasound 09/27/17 Signed Impressions: CONCLUSION: 1. Right Internal Carotid Artery: No significant stenosis or atherosclerotic p laque is visualized. 2. Left Internal Carotid Artery: No significant stenosis or atherosclerotic pl aque is visualized. 3. Antegrade flow in both vertebral arteries. Brain MRI 09/27/17 Signed Impressions: CONCLUSION: 1. Negative MR Brain non contrast. Head CT 09/26/171950 Signed Impressions: CONCLUSION: Unremarkable study. Chest X-Ray 09/26/171950 Signed Impressions: CONCLUSION: No acute cardiopulmonary disease. Hospital Course Patient symptoms resolved on admission. Patient was monitored closely. MRI brain, CT brain, CTA head and neck negative as above. Neurology followed during admission, and is cleared for discharge. Etiology thought to be likely secondary to complex migraine. Patient found to have TSH elevated in the 50s, and levothyroxine will be increased. Follow-up with endocrinology, neurology, primary care as outpatient. For problem based summary from most recent progress note, please see below. //Vision loss/dysarthria/numbness May be secondary to hypothyroidism status post ablation TIA workup pending; MRI brain and carotid ultrasound Possible complex migraine Neurology consulted, appreciate recommendations = Allergies cleared for discharge. I discussed with radiology. There is no evidence for an aneurysm at the base of the skull, however CTA as an imaging modality cannot rule this out. // Hypothyroidism Patient is status post ablation Sees endocrinology, Synthroid recently increased 2 weeks ago Continue home Synthroid Outpatient follow-up = Have increased Synthroid 150 mcg daily. Patient is to follow-up with veterinary poultry inspector in 1 week. //Factor II deficiency/autoimmune disorder Outpatient follow-up Discharge Planning Discharge home in good condition. Continue regular diet. Activity ad monica. Please see discharge medication reconciliation for medication list. Follow with neurology, primary care, endocrinology as outpatient. Pt Condition on Discharge: Good Discharge Disposition: Discharge Home Discharge Time: > 30 minutes Discharge Instructions DIET: Follow Instructions for: As Tolerated, No Restrictions Activities you can perform: Regular-No Restrictions Follow up Referrals: Endocrinology - 1 Week Neurology - 1 Week with Hernandez Caceres MD PCP Follow-up - 1 Week New Medications: Aspirin DR (Aspirin EC) 81 Mg Tabdr 81 MG PO DAILY for Stroke Prevention for 30 Days, #30 TAB 0 Refills Levothyroxine (Synthroid) 150 Mcg Tab 150 MCG PO DAILY@0600 for hypothyroid for 30 Days, TAB Make sure to follow-up with veterinary poultry inspector in 1 week to recheck TSH. Discontinued Medications: Levothyroxine (Synthroid) 100 Mcg Tab 100 MCG PO DAILY for Thyroid, #30 TAB 0 Refills Daryl Patrick MD Sep 28, 2017 10:08
[2017-10-01 23:53] LABS: STRIATED MUCLE AB TITER ND (<1:40)
== END 2017-09-28 11:37 | disposition home or self-care (01) ==
LOC: NEPE 19:32 → NEDA 22:07 → NEPHCDU 23:44
PROVIDERS: ADMIT Internal Medicine; ATTEND Internal Medicine
DX: R29.818 Other symptoms and signs involving the nervous system (principal); G43.909 Migraine, unspecified, not intractable, without status migrainosus; R94.6 Abnormal results of thyroid function studies; R00.0 Tachycardia, unspecified; F41.9 Anxiety disorder, unspecified; E89.0 Postprocedural hypothyroidism; D68.2 Hereditary deficiency of other clotting factors; R06.02 Shortness of breath; Z79.82 Long term (current) use of aspirin; K59.00 Constipation, unspecified; H53.2 Diplopia; H02.402 Unspecified ptosis of left eyelid; D89.89 Other specified disorders involving the immune mechanism, not elsewhere classified
CPT/HCPCS: 70450; 70496; 70498; 70551; 71045; 80048; 80053; 80061; 80307; 81001; 82550; 82552; 82607; 82948; 83036; 83519; 83690; 83735; 84439; 84443; 84480; 84484; 84703; 85025; 85610; 85652; 85730; 86140; 86255; 92610; 93005; 93880; 95819; 96360; 96361; 97161; 97166; 99285; G0378; G8987; G8988; G8989; G8996; G8997; G8998; J7030; Q9967